=== PATIENT | female | born 1990 | race Caucasian/White ===

== ENCOUNTER 2022-04-13 11:58 | Day surgery (SDC) | payer BC ==
[2022-03-30 09:16] VITALS: BMI 22.6
[2022-04-13 12:22] VITALS: RESP 16
[2022-04-13 13:05] VITALS: TEMP 97.7
[2022-04-13 13:22] VITALS: BP 105/65; PULSE 92
== END 2022-04-13 13:40 | disposition home or self-care (01) ==
LOC: FASU-ENDO 11:58
PROVIDERS: ATTEND Internal Medicine Gastroenterology
PROC: 0DB68ZX Excision of Stomach, Via Natural or Artificial Opening Endoscopic, Diagnostic (ICD-10-PCS; 2022-04-13)
PROC: 0DB48ZX Excision of Esophagogastric Junction, Via Natural or Artificial Opening Endoscopic, Diagnostic (ICD-10-PCS; 2022-04-13)
PROC: 0DB98ZX Excision of Duodenum, Via Natural or Artificial Opening Endoscopic, Diagnostic (ICD-10-PCS; principal; 2022-04-13 12:38)
DX: K29.50 Unspecified chronic gastritis without bleeding (principal); K20.90 Esophagitis, unspecified without bleeding; R10.13 Epigastric pain
CPT/HCPCS: 81025; 88305-TC; 88342-TC

== ENCOUNTER 2024-01-24 10:31 | Day surgery (SDC) | payer BC ==
[2024-01-16 13:51] VITALS: BMI 23.9
[2024-01-24] MEDS ORDERED: PROPOFOL 20 ML ONE (10:54)
[2024-01-24 12:02] VITALS: RESP 20; TEMP 97.1
[2024-01-24 13:06] VITALS: BP 107/77; PULSE 88
== END 2024-01-24 12:30 | disposition home or self-care (01) ==
LOC: FASU-ENDO 10:31
PROVIDERS: ATTEND Internal Medicine Gastroenterology
PROC: 0DB68ZX Excision of Stomach, Via Natural or Artificial Opening Endoscopic, Diagnostic (ICD-10-PCS; 2024-01-24)
PROC: 0DB48ZX Excision of Esophagogastric Junction, Via Natural or Artificial Opening Endoscopic, Diagnostic (ICD-10-PCS; 2024-01-24)
PROC: 0DB98ZX Excision of Duodenum, Via Natural or Artificial Opening Endoscopic, Diagnostic (ICD-10-PCS; principal; 2024-01-24 11:45)
DX: K29.50 Unspecified chronic gastritis without bleeding (principal); K20.90 Esophagitis, unspecified without bleeding; K31.9 Disease of stomach and duodenum, unspecified; R10.13 Epigastric pain
CPT/HCPCS: 81025; 88305-TC; 88342-TC